=== PATIENT | female | born 1965 | race Caucasian/White ===

== ENCOUNTER 2020-06-16 04:48 | Emergency (ER) | payer MEDICAID ==
[~2020-06-16] VITALS: Ht 170.2 cm; Wt 79.0 kg
[~2020-06-16 04:48] MED LIST: ATOR-2 MT; METF-415 PO
[2020-06-16] MEDS ORDERED: ASPIRIN 325MG EC TABLET PO ONE (05:15)
[2020-06-16 05:18] LABS: BASOPHILS % 0.5 % (0.0-2.0); EOSINOPHILS % 0.5 % (0.0-5.0); HEMATOCRIT. 40.9 % (36.0-48.0); HEMOGLOBIN. 13.5 g/dL (12.0-16.0); LYMPHOCYTES % 10.5 % (20.0-50.0); MEAN CORPUSCULAR HEMOGLOBIN 28.5 pg (28.0-32.0); MEAN CORPUSCULAR VOLUME 86.4 fL (81.0-99.0); MEAN PLATELET VOLUME 8.2 fl (7.4-10.4); MONOCYTES % 2.2 % (2.0-8.0); NEUTROPHILS % 86.3 % (40.0-76.0); PLATELET 267 x1000/uL (130-400); RED BLOOD CELL COUNT 4.73 mill/uL (4.2-5.4); RED CELL DISTRIBUTION WIDTH 13.5 % (11.6-14.6)
[2020-06-16 05:23] LABS: CHLORIDE 102 mEq/L (98-107)
[2020-06-16 05:26] LABS: ETHANOL BLOOD < 10 mg/dL
[2020-06-16 05:28] LABS: INR 0.9; PROTHROMBIN TIME 9.8 sec (9.6-11.0)
[2020-06-16] MEDS ORDERED: KETOROLAC 30MG/ML VIAL IV ONE (06:15)
[2020-06-16 07:34] VITALS: BP 123/67
[2020-06-16] MEDS ORDERED: TOPUD PO (07:42)
[2020-06-16] MEDS ORDERED: ONDA4TAB5 PO (07:42)
== END 2020-06-16 10:09 | disposition home or self-care (01) ==
LOC: ER 04:48
DX: R10.12 Left upper quadrant pain (principal); E11.9 Type 2 diabetes mellitus without complications; Z88.6 Allergy status to analgesic agent
CPT/HCPCS: 36415; 71045; 74176; 80053; 80320; 83690; 83880; 84484; 85025; 85610; 93005; 96374; 99285; J1885; Z7610; G0480

== ENCOUNTER 2021-10-08 06:06 | Emergency (ER) | payer MEDICAID ==
[~2021-10-08] VITALS: Ht 170.2 cm; Wt 79.0 kg
[~2021-10-08 06:06] MED LIST changes: +ONDA4TAB5 PO; +TOPUD PO
[2021-10-08] MEDS ORDERED: KETOROLAC 30MG/ML VIAL IV STA (07:49)
[2021-10-08] MEDS ORDERED: METOCLOPRAMIDE HCL 10MG/2ML VIAL IV ONE (08:00)
[2021-10-08 08:03] LABS: BASOPHILS % 0.5 % (0.0-2.0); HEMATOCRIT. 40.4 % (36.0-48.0); HEMOGLOBIN. 13.1 g/dL (12.0-16.0); LYMPHOCYTES % 34.9 % (20.0-50.0); MEAN CORPUSCULAR HEMOGLOBIN 27.9 pg (28.0-32.0); MEAN CORPUSCULAR VOLUME 85.9 fL (81.0-99.0); MEAN PLATELET VOLUME 9.3 fl (7.4-10.4); MONOCYTES % 6.6 % (2.0-8.0); PLATELET 218 x1000/uL (130-400); RED CELL DISTRIBUTION WIDTH 14.5 % (11.6-14.6)
[2021-10-08 08:07] LABS: CHLORIDE 107 mEq/L (98-107)
[2021-10-08] MEDS ORDERED: IBUP-2028 PO (08:33)
[2021-10-08] MEDS ORDERED: B50 PO (08:33)
[2021-10-08 09:02] VITALS: BP 126/73
== END 2021-10-08 09:03 | disposition home or self-care (01) ==
LOC: ER 06:06
DX: R07.89 Other chest pain (principal); R51.9 Headache, unspecified; E11.9 Type 2 diabetes mellitus without complications; Z88.6 Allergy status to analgesic agent
CPT/HCPCS: 36415; 71045; 80053; 83880; 84484; 85025; 93005; 96374; 96375; 99285; J1885; J2765

== ENCOUNTER 2021-12-29 07:25 | Emergency (ER) | payer MEDICAID ==
[~2021-12-29] VITALS: Ht 170.2 cm; Wt 81.0 kg
[~2021-12-29 07:25] MED LIST changes: +B50 PO; +IBUP-2028 PO
[2021-12-29] MEDS ORDERED: TRAZ-251 PO (07:46)
[2021-12-29] MEDS ORDERED: SITA1TAB6 PO (07:46)
[2021-12-29] MEDS ORDERED: ATOR-2 PO (07:46)
[2021-12-29 09:39] VITALS: BP 156/82
[2021-12-29 09:46] LABS: EOSINOPHILS % 1.6 % (0.0-5.0); HEMATOCRIT. 37.8 % (36.0-48.0); HEMOGLOBIN. 12.8 g/dL (12.0-16.0); LYMPHOCYTES % 28.6 % (20.0-50.0); MEAN CORPUSCULAR HEMOGLOBIN 29.1 pg (28.0-32.0); MEAN CORPUSCULAR VOLUME 85.6 fL (81.0-99.0); MEAN PLATELET VOLUME 9.1 fl (7.4-10.4); MONOCYTES % 10.2 % (2.0-8.0); NEUTROPHILS % 58.6 % (40.0-76.0); PLATELET 352 x1000/uL (130-400); RED BLOOD CELL COUNT 4.42 mill/uL (4.2-5.4); RED CELL DISTRIBUTION WIDTH 14.6 % (11.6-14.6)
[2021-12-29 09:59] LABS: CHLORIDE 104 mEq/L (98-107)
== END 2021-12-29 11:00 | disposition home or self-care (01) ==
LOC: ER 07:25
DX: R07.9 Chest pain, unspecified (principal); E11.9 Type 2 diabetes mellitus without complications; E78.00 Pure hypercholesterolemia, unspecified; Z88.6 Allergy status to analgesic agent
CPT/HCPCS: 36415; 71045; 80053; 83880; 84484; 85025; 93005; 99285

== ENCOUNTER 2022-02-02 01:18 | Emergency (ER) | payer MEDICAID ==
[~2022-02-02] VITALS: Ht 170.2 cm; Wt 81.1 kg
[~2022-02-02 01:18] MED LIST changes: +ATOR-2 PO; +SITA1TAB6 PO; +TRAZ-251 PO
[2022-02-02 01:39] VITALS: BP 142/59
== END 2022-02-02 10:04 | disposition home or self-care (01) ==
LOC: ER 01:18
DX: Z53.21 Procedure and treatment not carried out due to patient leaving prior to being seen by health care provider (principal); E11.9 Type 2 diabetes mellitus without complications; E78.00 Pure hypercholesterolemia, unspecified; Z88.6 Allergy status to analgesic agent
CPT/HCPCS: 93005

== ENCOUNTER 2024-12-17 21:32 | Emergency (ER) | payer MEDICAID ==
[~2024-12-17] VITALS: Ht 170.2 cm; Wt 72.5 kg
[~2024-12-17 21:32] MED LIST changes: -B50 PO; +DIPH50CA42 PO
[2024-12-17 21:44] VITALS: BP 168/77; TEMP 36.8; O2SAT 99
[2024-12-17 21:45] VITALS: PULSE 98; RESP 16; O2SAT 98
== END 2024-12-18 01:26 | disposition left against medical advice (07) ==
LOC: ER 21:32
DX: M54.2 Cervicalgia (principal)
CPT/HCPCS: 99281